=== PATIENT | male | born 1950 | race Caucasian/White ===

== ENCOUNTER 2021-01-30 13:13 | Emergency (ER) | payer OTHER, MEDICARE, BC ==
[2021-01-30] MEDS ORDERED: Boostrix 0.5 ML (Tdap) VIAL ONE (13:48)
[2021-01-30] MEDS ORDERED: Bacitracin 1 PK ONE (13:58)
[2021-01-30] MEDS ORDERED: Lidocaine 1% (PF) 30 ML VIAL ONE (13:59)
== END 2021-01-30 14:37 | disposition home or self-care (01) ==
LOC: NAV ERS 13:13
DX: S61.411A Laceration without foreign body of right hand, initial encounter (principal); S51.811A Laceration without foreign body of right forearm, initial encounter; I10 Essential (primary) hypertension; E78.5 Hyperlipidemia, unspecified; Z23 Encounter for immunization; Z79.899 Other long term (current) drug therapy; W55.22XA Struck by cow, initial encounter
CPT/HCPCS: 12002; 90471; 90715; J2001